=== PATIENT | female | born 1975 | race Caucasian/White ===

== ENCOUNTER 2018-01-21 08:46 | Day surgery (SDC) | payer BC ==
[2018-01-18 16:07] LABS: Absolute Lymphocytes (CBC) 2.1 K/uL (0.7-4.9); Absolute Monocytes 0.3 K/uL (0.1-1.3); Absolute Neutrophil 4.8 K/uL (1.8-8.0); Basophils % 0.5 % (0-1.3); Eosinophils % 4.5 % (0-4.4); Lymphocytes % 27.3 % (15.3-44.8); MCH 30.6 pg (27.0-35.0); MCV 87.8 fL (80-100); MPV 9.9 fL (7.6-11.3); Monocytes % 4.6 % (3.3-12.3); RBC Red Blood Cell Count 3.99 M/uL (3.86-4.86)
[2018-01-21 09:03] LABS: Specific Gravity 1.025 (1.005-1.030)
[2018-01-21] MEDS ORDERED: Ringers Lactate 1,000 ML IV ONE ×2 (09:35→15:16)
[2018-01-21] MEDS: Levofloxacin500mg IV 500 MG/100 ML BAG IV ONE ×2 (09:53→12:37)
[2018-01-21] MEDS ORDERED: PROPOFOL 200 MG/20 ML VIAL IV ONE (11:04)
[2018-01-21] MEDS ORDERED: LIDOCAINE 2% MPF 5 ML VIAL ONE (11:05)
[2018-01-21] MEDS ORDERED: MIDAZOLAM HCL 2 MG/2 ML INJ ONE (11:05)
[2018-01-21] MEDS ORDERED: ONDANSETRON 4 MG/2 ML VIAL ONE ×3 (11:06→17:05)
[2018-01-21] MEDS ORDERED: ROCURONIUM 50 MG/5 ML VIAL IV ONE (11:07)
[2018-01-21] MEDS ORDERED: FENTANYL CITR 100 MCG/2 ML ONE ×2 (11:08→14:18)
[2018-01-21] MEDS ORDERED: GLYCOPYRROLATE 0.2 MG/ML SYR ONE (14:24)
[2018-01-21] MEDS ORDERED: NEOSTIGMINE 1 MG/ML -5 ML SYRINGE ONE (14:24)
[2018-01-21] MEDS ORDERED: KETOROLAC 30 MG/ML INJ ONE (14:26)
[2018-01-21] MEDS: MORPHINE 10 MG/ML VIAL ONE ×5 (14:40→15:00)
[2018-01-21] MEDS ORDERED: MEPERIDINE HCL 25 MG/0.5 ML ONE (15:29)
[2018-01-21] MEDS ORDERED: HYDROCODONE/APAP 5/325 MG TAB ONE (16:17)
--- NOTE | 2018-01-22 00:48 | OP ---
Date of Procedure: 01/21/2018 Surgeon: Mechelle Bill MD Lumber Straightener: Ave Patino. Preoperative Diagnosis: Heavy menstrual bleeding. Patient failed Mirena. Postoperative Diagnoses: Heavy menstrual bleeding. Patient failed Mirena. Bilateral omental and tu tarsha-ovarian adhesions, likely endometriosis. Procedures Performed: 1.Diagnostic hysteroscopy, endometrial ablation with HTA. 2.Diagnostic laparoscopy, bilateral salpingectomy. 3.Lysis the omental and tubo-ovarian adhesions. Anesthesia: General. Specimens: Bilateral tubes. Estimated Blood Loss: Minimal. Complications: No complications. Drains: None. Condition: Patient's condition stable. Findings: Uterus retroflexed, enlarged about 6-8 weeks size, decreased mobility, adhesions of the ov corby to the posterior aspect of the uterus, especially the right one was almost adhered to the cente r of the uterus and all the way down to the level of the lower part of the body of the uterus. The c ystic area of the ovary was drained. There was no endometriotic material and here was clear yellowis h fluid. However, I could not mobilize the entire ovary from the uterine cavity. However, the tubo- ovarian adhesions were taken down. The adhesions of the left ovary were taken down as well to free t he ovary up. No evidence of endometriosis apparently, however, in the posterior aspect where the ova trista were adhered, the pattern appeared to be consistent with it. The cavity of the uterus was unrem arkable. Good ablation effect. Indications: The patient is a 42-year-old with heavy periods for a long time. She has been treated with medical management with the last treatment method was in the Mirena, on which she did well for a few years and then the bleeding recurred. The patient was sampled. No evidence of JEFFY or EAC. She was consented for an endometrial ablation given the fact that she does have painful period and also because she has not had any control medications in place. We discussed the options of doing a tubal ligation or removal of tubes since we were going to do an ablation on this patient. Procedure In Detail: After informed consent was verified, the patient was taken back to the OR, 2 g of Ancef were given. The patient was placed in a supine fashion on the operating table. After gener al anesthesia was given, she was placed in dorsal lithotomy position. A pelvic exam was performed. The uterus was retroflexed with decreased mobility. No adnexal masses were noted. Abdomen, vulva, vagina, and perineum were prepped and draped in a sterile fashion after the arms were tucked by the side. Speculum was placed to expose the cervix. Anterior lip of the cervix was grasp ed with 2 Allis clamps. The cervical canal was dilated to about 16-Wolof and then using the HTA she ath as prime, diagnostic hysteroscopy was started and the cervical canal was traversed under direct v ision into the uterine cavity. The cavity was empty. Both tubal ostia were well visualized. There was minimal thickening of the lining of the endometrium of the uterus. The tip of the scope was plac ed in the middle of the cavity. The anterior Allis clamp hooked onto the HTA sheath, then posterior vagina packed with 2 Ray-Tecs. A cavity integrity test was done, and once this was passed, the ablat ion cycle was started. The full heating cycle and the ablation cycle to 9.5 minutes were performed w ithout any problems or interruption. The fluid loss detected seemed to be at 7-9 cc of water. Howev er, with less than 30 seconds left, uterus had relaxed and there was an increased fluid loss detected . So, once this was done, the posterior vaginal packing was checked. There was minimal watery disch arge on the packing with some mix of blood, likely from the dilation. No extra fluid was detected he re. So, I went on to complete the cycle without any problem. Then, a cooling cycle was conducted wi thout any interruption. All the ablation clamps and the scope were removed after diagnostic hysteroscopy was done to wash elvie y the cavity and the pictures were taken. Then, a diagnostic VCare was introduced into the uterus an d fixed in place. Cabrera was placed in the bladder and this area was draped. A 1-cm infraumbilical i ncision was made with a scalpel using the open laparoscopy technique. Fascia was exposed and incised with a 15-blade. Peritoneal cavity was entered bluntly with the help of the finger. Once this was done, the fascia incision was extended slightly so I could fit the Murrell easier. Once this was done , the edges were tagged and Murrell placed. Site of entry was checked and unremarkable. Liver and gallbladder were unremarkable as well. There were adhesions of the omentum to the anterior abdominal wall just starting at the level of the incisi on below the umbilicus and all the way down to the suprapubic area and laterally into the right anter ior broad ligament and the right lateral wall. There were some adhesions of the omentum to the left ovary and to the left broad ligament in the posterior aspect as well. The tubes were completely adhe red to the ovarian tissue on the right side as the ovary was adhered posteriorly. On the left side, there were adhesions of the tube and the ovary to each other. The opposite tube was more scarred remigio n the left, so a 5-mm left lower quadrant port was placed. LigaSure used to take down adhesions of t he omentum to the anterior abdominal wall so that it was clear enough to place a suprapubic port. On ce this was done, the suprapubic port was placed using push-spread technique. All the adhesions on t he right anterior broad ligament were also taken down with dissection with the bipolar LigaSure. Onc e all these were taken down, the adhesions on the left side were taken down including the colonic adh esions to the sidewall to the level of the natural attachment of the colon. Then, the left tube was identified distally. It was adhered medial to the ovary and all the way to t he left lateral broad ligament on the anterior aspect. This was also adhered to the IP ligament, so lysis of adhesions was done to take separate the tube from the lateral wall from the IP ligament and then separate it from the ovary and then this was packed in. Then, on the opposite side, on the righ t side, the ovary was distorted and pulled posteriorly and laterally to the ovary since the ovary wer e adhered medially to the posterior aspect. The adhesions of the tube were taken down with the help of the LigaSure starting at the cornual end and coming down all the way to the level of the distal fi mbriated end. Once all the push-spread technique was used, then bipolar cautery was used to cut. Th e specimen was removed and handed out for permanent. The specimen was removed and placed in the ante rior cul-de-sac along with the contralateral ovary. The ovarian adhesions were taken down posteriorl y to release this and cystotomy was performed on the right ovarian cyst. There was simple clear yell owish discharge. No evidence of any endometrioma. I did not see the need for doing endometriosis ex cision in this patient. This will be considered if she comes back for another procedure or if she co ntinues to have pain. Thorough suction and irrigation were performed. A 5-mm camera was used in the left lower quadrant an d through the suprapubic port, all the tubal specimens were pulled out and sent off for permanent pat hology. Thorough irrigation and suction were performed. All the trocars were removed under direct v ision. VCare was removed. Cabrera removed. The patient recovered from anesthesia and taken to the [facility] in stable condition. Toradol was given. She will follow up with me in 3 weeks. SEAN/LORENZA Voice ID: [id number] Report ID: [id number]
== END 2018-01-21 17:20 | disposition home or self-care (01) ==
LOC: OR 08:46
PROVIDERS: ATTEND Obstetrics & Gynecology
PROC: 0UT74ZZ Resection of Bilateral Fallopian Tubes, Percutaneous Endoscopic Approach (ICD-10-PCS; 2018-01-21)
PROC: 0U5B8ZZ Destruction of Endometrium, Via Natural or Artificial Opening Endoscopic (ICD-10-PCS; principal; 2018-01-21 10:30)
DX: N92.0 Excessive and frequent menstruation with regular cycle (principal); N73.6 Female pelvic peritoneal adhesions (postinfective); N71.1 Chronic inflammatory disease of uterus; I10 Essential (primary) hypertension; J45.909 Unspecified asthma, uncomplicated; F41.9 Anxiety disorder, unspecified; Z88.2 Allergy status to sulfonamides; Z88.1 Allergy status to other antibiotic agents; Z82.49 Family history of ischemic heart disease and other diseases of the circulatory system; Z80.52 Family history of malignant neoplasm of bladder
CPT/HCPCS: 36415; 81025; 85025; 86850; 86900; 86901; 88302; 88305; J2175; J2250; J2405; J2710; J3010